=== PATIENT | male | born 1960 | race Caucasian/White ===

== ENCOUNTER → 2016-09-20 | Outpatient (CLI) | payer BC ==
[~2016-09-20] MED LIST: ASPI81TA28 PO; LISI-461 PO; NSP/500 PO; OMEP40CA PO; ROSU20TA PO
[2016-09-20 13:59] LABS: ALT/SGPT 25 U/L (12-78); BLOOD UREA NITROGEN 15 mg/dl (7-18); BUN/CREATININE RATIO 14.9 (10-20); CARBON DIOXIDE 27 mmol/L (21-32); CHLORIDE 106 mmol/L (98-107); GLUCOSE 102 mg/dl (70-99); POTASSIUM 4.2 mmol/L (3.5-5.1); SODIUM 141 mmol/L (136-145)
[2016-09-20 14:04] LABS: CHOLESTEROL 151 mg/dl (0-200); CHOLESTEROL/HDL RATIO 4.1; HDL CHOLESTEROL 37 mg/dl; LDL CHOLESTEROL CALCULATED 81 mg/dl; PROSTATE SPECIFIC ANTIGEN 0.725 ng/ml (0.000-4.000); TRIGLYCERIDES 163 mg/dl (0-150); VERY LOW DENSITY LIPOPROT CALC 33 mg/dl
== END | disposition home or self-care (01) ==
LOC: C.LABBC 10:03
PROVIDERS: ATTEND Family Medicine
DX: E78.5 Hyperlipidemia, unspecified (principal); I10 Essential (primary) hypertension; Z12.5 Encounter for screening for malignant neoplasm of prostate

== ENCOUNTER → 2017-09-26 | Outpatient (CLI) | payer OTHER ==
[~2017-09-26] MED LIST changes: +NIAC500T83 PO; -NSP/500 PO
[2017-09-26 12:26] LABS: ALT/SGPT 26 U/L (12-78); BLOOD UREA NITROGEN 17 mg/dl (7-18); CALCIUM 7.9 mg/dl (8.5-10.1); CARBON DIOXIDE 23 mmol/L (21-32); CHOLESTEROL 141 mg/dl (0-200); GLUCOSE 127 mg/dl (70-99); POTASSIUM 3.9 mmol/L (3.5-5.1); SODIUM 139 mmol/L (136-145)
[2017-09-26 12:32] LABS: LDL CHOLESTEROL CALCULATED 80 mg/dl
== END ==
LOC: C.LABPBG 08:36
PROVIDERS: ATTEND Family Medicine
DX: E78.5 Hyperlipidemia, unspecified (principal); I10 Essential (primary) hypertension

== ENCOUNTER 2017-12-08 06:18 | Day surgery (SDC) | payer OTHER ==
[2017-11-29 08:53] VITALS: Ht 175.3 cm; Wt 118.9 kg
--- NOTE | 2017-11-29 09:17 | PAT Medication Instructions ---
Service Date Nov 29, 2017. Current Home Medication List Aspirin (Aspirin Ec), 162 MG PO HS Lisinopril (Zestril), 20 MG PO HS Omeprazole (Prilosec), 40 MG PO HS Rosuvastatin Calcium (Crestor), 40 MG PO HS Medication Instructions For Your Scheduled Surgery -Follow the surgeon's instructions for: Aspirin (Aspirin Ec), 162 MG PO HS - Hold the following medications the night before surgery: Lisinopril (Zestril), 20 MG PO HS - Take the following medications as scheduled the night before surgery: Omeprazole (Prilosec), 40 MG PO HS Rosuvastatin Calcium (Crestor), 40 MG PO HS If you have any questions please call us at [phone] or [phone] or [phone]
--- NOTE | 2017-11-29 10:10 | DIAGNOSTIC IMAGING REPORT ---
CHEST 2 VIEWS ROUTINE CLINICAL HISTORY: 57 years-old Male presenting with preoperative assessment. TECHNIQUE: PA and lateral views of the chest were obtained. COMPARISON: None. FINDINGS: Cardiomediastinal silhouette normal. Lungs and pleural spaces clear. Osseous structures normal. Upper abdomen normal. IMPRESSION: 1. No acute cardiopulmonary disease. Electronically signed by: Toby Spivey M.D. 11/29/2017 10:09 AM Dictated Date/Time: 11/29/2017 10:09 AM
[2017-11-29 10:31] LABS: BASO % 0.3 %; BASO ABS # 0.02 K/uL (0-0.2); EOS % 3.6 %; EOS ABS # 0.24 K/uL (0-0.5); HEMATOCRIT 43.4 % (42-52); HEMOGLOBIN 14.9 g/dL (14.0-18.0); IG# 0.01 K/uL (0.00-0.02); LYMPH ABS # 1.92 K/uL (1.2-3.4); MEAN CELL VOLUME 87.3 fL (80-100); MEAN CORPUSCULAR HGB CONC 34.3 g/dl (32-36); MEAN PLATELET VOLUME 9.3 fL (7.4-10.4); MONO % 6.6 %; MONO ABS # 0.44 K/uL (0.11-0.59); NEUT % 60.3 %; NEUT ABS # 3.99 K/uL (1.4-6.5); PLATELET COUNT 172 K/uL (130-400); RED CELL DISTRIBUTION WIDTH CV 13.6 % (11.5-14.5); RED CELL DISTRIBUTION WIDTH SD 43.6 fL (36.4-46.3); WHITE BLOOD COUNT 6.62 K/uL (4.8-10.8)
[2017-11-29 10:38] LABS: CREATININE 1.04 mg/dl (0.60-1.40); POTASSIUM 4.1 mmol/L (3.5-5.1)
[2017-11-29 10:40] LABS: PTT PATIENT 26.4 SECONDS (21.0-31.0)
--- NOTE | 2017-12-07 11:19 | HISTORY & PHYSICAL EXAMINATION ---
DATE OF ADMISSION: 12/08/2017 CHIEF COMPLAINT: Right shoulder pain. HISTORY OF PRESENT ILLNESS: The patient is a 57-year-old gentleman seen and evaluated in our office with right shoulder pain and disability. X-rays reveal a large, somewhat retracted rotator cuff tear. He is now scheduled for right shoulder arthroscopy, possible rotator cuff repair. PAST MEDICAL HISTORY: Hypertension, hypercholesterolemia, sleep apnea with CPAP use, obesity, acid reflux. PAST SURGICAL HISTORY: Tonsillectomy, vasectomy. MEDICATIONS: Lisinopril 20 mg daily, omeprazole 40 mg daily, rosuvastatin 40 mg daily, aspirin 81 mg twice daily. ALLERGIES: No known drug allergies. SOCIAL HISTORY AND REVIEW OF SYSTEMS: Noncontributory. PHYSICAL EXAMINATION: GENERAL: Well-nourished, well-developed, obese male who appears stated age. HEENT: Normocephalic, atraumatic, extraocular movements intact, oropharynx pink and moist. NECK: Supple without adenopathy. LUNGS: Clear to auscultation bilaterally. HEART: Regular rate and rhythm. ABDOMEN: Soft, nontender, nondistended, obese. EXTREMITIES: The right shoulder demonstrates painful active range of motion. There is weakness in the rotator cuff with resistive testing. He has pain to palpate about the AC joint. X-RAYS: X-rays and MRI are reviewed. The x-rays did not show significant abnormalities. The MRI shows a large somewhat retracted rotator cuff tear. This involves primarily anterior aspect of the rotator cuff. There is evidence of AC joint arthritis as well. ASSESSMENT: Right shoulder acromioclavicular joint arthritis and large rotator cuff tear. PLAN: Risks versus benefits were discussed, consent was obtained. We will proceed with right shoulder arthroscopy, subacromial decompression, distal clavicle excision, and rotator cuff repair as indicated. The surgery will be performed at the hospital due to his obesity.
[~2017-12-08] VITALS: Ht 175.3 cm; Wt 118.9 kg
[~2017-12-08 06:18] MED LIST changes: +CEFAZOLIN 2000MG IV PUSH 15 ML IV SCH; -NIAC500T83 PO; -OMEP40CA PO; +PRLSR20 PO
[2017-12-08] MEDS ORDERED: ROPIVACAINE 0.5% 5 MG/ML 30 ML VIAL ONE (06:41)
--- NOTE | 2017-12-08 06:56 | History & Physical Bridge Note ---
H&P Re-Evaluation Bridge Note: I have examined the patient, reviewed the History & Physical and in the interval since the performance of the History & Physical I have noted the following changes of clinical significance: No changes noted
[2017-12-08 07:04] VITALS: BP 138/76; PULSE 73; TEMP 36.7; O2SAT 96
[2017-12-08] MEDS ORDERED: NEOSTIGMINE METHYLSULFATE 5 MG/5 ML SYR ONE (08:17)
[2017-12-08] MEDS ORDERED: ONDANSETRON INJ 2 MG/ML 2 ML VIAL ONE (08:17)
[2017-12-08] MEDS ORDERED: ROCURONIUM BROMIDE 10 MG/ML 5 ML VIAL IV ONE (08:17)
[2017-12-08] MEDS ORDERED: DEXAMETHASONE SOD INJ 4 MG/ML VIAL ONE (08:17)
[2017-12-08] MEDS ORDERED: PROPOFOL IV EMULSION 10 MG/ML 20 ML VIAL IV ONE ×2 (08:17→09:45)
[2017-12-08] MEDS ORDERED: GLYCOPYRROLATE INJ 0.2 MG/ML VIAL ONE ×2 (08:17)
[2017-12-08] MEDS ORDERED: LIDOCAINE HCL 2% 2 ML VIAL (20MG/ML) ONE (08:17)
[2017-12-08] MEDS ORDERED: MIDAZOLAM HCL 1 MG/ML 2ML VIAL ONE (08:22)
[2017-12-08] MEDS ORDERED: FENTANYL CITRATE INJ 50 MCG/1 ML 2 ML VIAL ONE (08:50)
[2017-12-08] MEDS ORDERED: FENTANYL CITRATE INJ 50 MCG/1 ML 2 ML VIAL IV PRN (09:15)
[2017-12-08] MEDS ORDERED: ATROPINE SULFATE 0.1 MG/ML 5ML SYR IV PRN (09:15)
[2017-12-08] MEDS ORDERED: EpHEDrine SULFATE INJ 50 MG/ML AMP IV PRN (09:15)
[2017-12-08] MEDS ORDERED: HYDROmorphone INJ 0.5 MG/0.5 ML SYR IV PRN (09:15)
[2017-12-08] MEDS ORDERED: ONDANSETRON INJ 2 MG/ML 2 ML VIAL IV PRN (09:15)
[2017-12-08] MEDS ORDERED: PHENYLEPHRINE 100MCG/ML 5ML SYR ONE (09:27)
[2017-12-08] MEDS ORDERED: EpHEDrine SULFATE 50MG/5ML SYR ONE (09:27)
[2017-12-08] MEDS ORDERED: PHENYLEPHRINE HCL INJ 10 MG/ML VIAL ONE (09:33)
[2017-12-08] MEDS ORDERED: SODIUM CHLORIDE 0.9% 1000ML 1,000 ML IV SCH (10:39)
--- NOTE | 2017-12-08 10:39 | [facility] Post Operative Brief Note ---
Immediate Operative Summary Operative Date Dec 08, 2017. Pre-Operative Diagnosis RIGHT SHOULDER PAIN Post-Operative Diagnosis SAME PREOP Procedure(s) Performed Right Shoulder Arthroscopy, Rotator Cuff Repair, Subacromial Decompression, Distal Clavicale Excision Surgeon DR. LEDESMA Varnish Dipper Surgeon(s) Derrell BOYD PAC Estimated Blood Loss 50ml Findings Consistent with Post-Op Diagnosis Specimens NONE Drains None Anesthesia Type MAC Spinal Regional Complication(s) none Disposition Accompanied Pt To Recover: no Disposition: Recovery Room / PACU
[2017-12-08] MEDS ORDERED: OXYC-57 PO (10:42)
--- NOTE | 2017-12-08 10:43 | Discharge Instructions ---
Discharge Instructions Date of Service Dec 08, 2017. Visit Reason for Visit: Right Shoulder Osteoarthritis, Impingement Syndrom Discharge Discharge Diagnosis / Problem: Right shoulder rotator cuff tear, AC joint arthritis Discharge Goals Goal(s): Decrease discomfort, Improve function Activity Recommendations Activity Limitations: as noted below Anesthesia . Post Anesthesia Instructions: If you have had General Anesthesia or IV Sedation: * Do not drive today. * Resume driving when surgeon permits. * Do not make important decisions or sign legal documents today. * Call surgeon for: 1. Temperature elevations greater than 101 degrees F. 2. Uncontrollable pain. 3. Excessive bleeding. 4. Persistent nausea and vomiting. 5. Medication intolerance (nausea, vomiting or rash). * For nausea and vomiting use only clear liquids such as: tea, soda, bouillon until nausea subsides, then gradually increase diet as tolerated. * If you have any concerns or questions, call your surgeon's office. If physician is unavailable and it is an emergency, call 911 or go to the nearest emergency room. . Instructions / Follow-Up Instructions / Follow-Up U DISCHARGE INSTRUCTIONS: ROTATOR CUFF REPAIR SELF CARE INSTRUCTIONS A. You are permitted to loosen your sling/immobilizer to move your elbow, wrist , and hand to prevent stiffness. You should use your well arm (good arm) to assist the operated extremity when trying to raise the arm away from the body, hygiene purposes. Do NOT actively try to use/engage your shoulder muscles in operative arm at this time. You should NOT do overhead activity, lifting, or attempt to reach behind your back. B. You may/may not be instructed to start Physical Therapy upon discharge depending upon the size and difficulty of the repair. You will be provided a prescription for therapy with specific restrictions, if needed, at time of discharge. C. At 48 hours post-operatively, you may change your dressing. (Leave white steri-strips intact if present). Use band-aids and change daily. You are allowed to shower at this time and get the incision area wet, but DO NOT soak or submerge incision area in water. (No baths, swimming pools, hot tubs) D. Do NOT apply soap or any ointment/lotions directly over incision. E. You may use ice as needed to operative shoulder SPECIAL CARE INSTRUCTIONS: VERY IMPORTANT TO READ AND REVIEW A. There are a few signs you need to watch for after you are home. Call [facility] at [phone] if you experience any of the following: a. Increased severe shoulder pain. Some pain is expected especially when you exercise b. Increased swelling in your shoulder or arm; pain or swelling in either upper extremity. (Note: swelling and stiffness is normal and expected for several weeks post op, depending on type of shoulder surgery you had). c. Any fluid or drainage from the incision; redness of the incision. d. Shortness of breath or chest pain. B. Please call [facility] at [phone] if you have any questions or concerns about your operation or recovery. C. Call your physician if: a. Temperature is greater than 101 degrees (F). b. Pain is not relieved by prescribed pain medications. c. Increase drainage or redness from incision. d. Unanswered questions or concerns. D. Pain Medication: a. You will be prescribed pain medication upon discharge that should last till your first post-operative appointment. b. If you experience nausea and/or skin rash, discontinue this medication and contact our office for an alternative medication. c. Caution- narcotic pain medication can cause constipation. FOLLOW UP VISIT: Please call [facility] at [phone] to schedule a follow up appointment 10-14 days from your surgery date. Diet Recommendations Recommended Home Diet: resume previous diet Procedures Procedures Performed: Right Shoulder Arthroscopy, Rotator Cuff Repair, Subacromial Decompression, Distal Clavicale Excision Pending Studies Studies pending at discharge: no Medical Emergencies . Who to Call and When: Medical Emergencies: If at any time you feel your situation is an emergency, please call 911 immediately. . Non-Emergent Contact Non-Emergency issues call your: Surgeon Call Non-Emergent contact if: temperature is above 101.5, your pain is not controlled, wound has increased drainage, wound has increased redness . . "Provider Documentation" section prepared by Juan Pro PA-C. . [place] Drug Monitoring Program Search Results: patient reviewed within database, no issues identified
[2017-12-08] MEDS ORDERED: OXYCODONE/ACETAMINOPHEN 5-325 TAB PO PRN ×2 (10:45)
--- NOTE | 2017-12-08 11:11 | OPERATIVE REPORT ---
DATE OF OPERATION: 12/08/2017 PREOPERATIVE DIAGNOSIS: Rotator cuff tear, long head of the biceps tear, acromioclavicular arthritis, right shoulder. POSTOPERATIVE DIAGNOSIS: Rotator cuff tear, long head of the biceps tear, acromioclavicular arthritis, right shoulder. PROCEDURE: Arthroscopic subacromial decompression with bursectomy, rotator cuff repair and distal clavicle excision, right shoulder. SURGEON: Dr. Keating. REVERSE UNIT OPERATOR: Juan Pro PA-C. ANESTHESIA: General. COMPLICATIONS: None. DESCRIPTION OF PROCEDURE: Following the administration general anesthesia, the patient's right shoulder was prepped and draped in the usual sterile manner. Mr. Pro was utilized throughout all portions of procedure including positioning, prepping, draping, surgical corsetier, knot tying, wound closure and dressing application. The right shoulder was prepped and draped in usual sterile manner. Posterior incision was used for insertion of the arthroscope. Intraarticular elements were identified and there was found to be complete absence of the long head of the biceps tendon. The rotator cuff tear was identified. Glenohumeral joint was within normal limits. The scope was then placed in the subacromial space where moderate bursitis was encountered. Bursectomy was carried out using 90 degree ablator and a bur was used to perform another subacromial decompression, otherwise known as an acromioplasty. The rotator cuff was grasped with Ruthy and was found to be able to be brought back to a reasonable degree. The bur was used to denude an exposed subchondral bone at the area of the attachment point for the rotator cuff. The supraspinatus then reattached to the femoral head using 2 triple loaded soft tissue anchors and these were taken and the rotator cuff was repaired using #2 Healicoil sutures, 4 sutures attached to each and these were taken in a crisscrossing fashion to 2 footprint anchors. This produced watertight and stable repair of the rotator cuff. A bur was then introduced anteriorly and the distal clavicle excision was carried out removing roughly a centimeter distal clavicle. Final walk around with the bur revealed a small for need to be shaved but otherwise, the patient was taken to recovery in stable and good condition. He tolerated the procedure well. I attest to the content of the Intraoperative Record and any orders documented therein. Any exception s are noted below.
--- NOTE | 2017-12-08 11:33 | Anesthesiology Progress Note ---
Anesthesia Post Op Note Date & Time Dec 08, 2017 at 11:33 Vital Signs Pain Intensity: 0 Vital Signs Past 12 Hours Date Time Temp Pulse Resp B/P (MAP) Pulse Ox O2 Delivery O2 Flow Rate FiO2 12/08/17 11:25 36.4 68 12 133/76 94 Room Air 12/08/17 11:15 71 15 132/74 94 Room Air 12/08/17 11:05 69 18 133/83 100 Oxymask 10 12/08/17 10:55 71 20 130/77 100 Oxymask 10 12/08/17 10:45 36.0 80 20 135/72 99 Oxymask 10 12/08/17 07:04 36.7 73 20 138/76 (96) 96 Room Air Notes Mental Status: alert / awake / arousable, participated in evaluation Pt Amnestic to Procedure: Yes Nausea / Vomiting: adequately controlled Pain: adequately controlled Airway Patency, RR, SpO2: stable & adequate BP & HR: stable & adequate Hydration State: stable & adequate Anesthetic Complications: no major complications apparent
[2017-12-08 11:35] VITALS: BP 140/73; PULSE 67; TEMP 36.5; O2SAT 94
[2017-12-08] MEDS ORDERED: OXYCODONE/ACETAMINOPHEN 5-325 TAB ONE (11:47)
[2017-12-08 12:05] VITALS: BP 141/73; PULSE 78; O2SAT 93
[2017-12-08 12:35] VITALS: BP 116/69; PULSE 82; TEMP 36.6; O2SAT 93
== END 2017-12-08 13:02 | disposition home or self-care (01) ==
LOC: C.ACU 06:18
DX: M75.101 Unspecified rotator cuff tear or rupture of right shoulder, not specified as traumatic (principal); M19.011 Primary osteoarthritis, right shoulder; I10 Essential (primary) hypertension; E78.00 Pure hypercholesterolemia, unspecified; E78.5 Hyperlipidemia, unspecified; G47.33 Obstructive sleep apnea (adult) (pediatric); K21.9 Gastro-esophageal reflux disease without esophagitis; E66.9 Obesity, unspecified; Z90.89 Acquired absence of other organs; Z98.52 Vasectomy status; Z79.82 Long term (current) use of aspirin

== ENCOUNTER 2018-04-22 13:58 | Emergency (ER) | payer OTHER ==
[~2018-04-22] VITALS: Ht 175.3 cm; Wt 115.9 kg
[~2018-04-22 13:58] MED LIST changes: -CEFAZOLIN 2000MG IV PUSH 15 ML IV SCH; +OXYC-57 PO
[2018-04-22 14:00] VITALS: Ht 175.3 cm; Wt 115.9 kg
[2018-04-22] MEDS ORDERED: DiphenhydrAMINE HCL 50 MG/ML VIAL IV STA (14:11)
[2018-04-22] MEDS ORDERED: METHYLPREDNISOLONE 125 MG VIAL IV STA (14:11)
[2018-04-22] MEDS ORDERED: SODIUM CHLORIDE 0.9% 500ML 500 ML IV STA (14:11)
--- NOTE | 2018-04-22 14:11 | EMERGENCY ROOM VISIT NOTE ---
History Report prepared by Jana: Eb Lara Under the Supervision of: Dr. Jose Weeks M.D. First contact with patient: 14:04 Chief Complaint: ALLERGIC REACTION Stated Complaint: ALLERGIC REACTION History of Present Illness The patient is a 57 year old male with a past medical history of HTN, HLD, GERD who presents to the ED with a cc of an allergic reaction to a bee sting that occurred today at 1230. The patient reports that he was stung about four times and started to progressively swell since the stings. He also noted that he has felt itchy on his hands and ankles and his lips feel numb after the sting. The patient also states that his breathing is fine now but he did take Benadryl and received a breathing treatment. He also reports that he has been stung in the past on his lower lip that also resulted in swelling. Positive Coughing, wheezing, HTN, HLD, and GERD. Negative for any other allergies Source of History: patient Onset: An hour and a half ago Position: head (Face) Quality: numbness, other (Itchy) Timing: worsening Associated Symptoms: + cough, No SOB Review of Systems See HPI for pertinent positives and negatives. A total of ten systems were reviewed and were otherwise negative. Past Medical & Surgical Medical Problems: (1) No pertinent past medical history Surgical Problems: (1) No pertinent past surgical history Family History Patient reports no known family medical history. Social History Smoking Status: Never Smoker Alcohol Use: occasionally Drug Use: none Marital Status: Housing Status: lives with family Occupation Status: employed Current/Historical Medications Scheduled Aspirin (Aspirin Ec), 162 MG PO HS Calcium Carbonate-Vitamin D (Calcium), 1 TAB PO DAILY Epinephrine (Epipen), 0.3 MG IM UD Lisinopril (Zestril), 20 MG PO HS Omeprazole (Prilosec), 40 MG PO HS Prednisone (Prednisone), 50 MG PO DAILY Rosuvastatin Calcium (Crestor), 40 MG PO HS Scheduled PRN Oxycodone/Acetaminophen 5MG/325MG (Percocet 5MG/325MG), 1-2 TABLETS PO q4-6 PRN for Pain Allergies Coded Allergies: No Known Allergies (Unverified , 04/22/18) Physical Exam Vital Signs Date Time Temp Pulse Resp B/P (MAP) Pulse Ox O2 Delivery O2 Flow Rate FiO2 04/22/18 16:06 36.7 86 22 144/79 96 04/22/18 15:07 89 22 117/80 96 Room Air 04/22/18 14:02 101 04/22/18 14:00 95 Room Air 04/22/18 14:00 36.7 97 20 164/89 95 Room Air Physical Exam GENERAL: Awake, alert, well-appearing, NAD HENT: atraumatic, mild facial swelling and periorbital edema, posterior pharynx clear, no tonsillar or uvular deviation or swelling. EYES: Normal conjunctiva. Sclera non-icteric. PERRL. No anisocoria. NECK: Supple. No nuchal rigidity. FROM. Non-stridulous RESPIRATORY: no rhonchi, or crackles. Wheezing in right lung CARDIAC: RRR, no MRG ABDOMEN: Soft, NTND, BS+ MSK: No chest wall TTP, no LE edema NEURO: GCS 15, CN 2-12 intact, moves all 4s on command SKIN: No rash or jaundice noted. Mild diffuse urticaria, Nikolsky negative Medical Decision & Procedures Medications Administered Medications (Trade) Dose Ordered Sig/Jim Route Start Time Stop Time Status Last Admin Dose Admin Diphenhydramine HCl (Benadryl Inj) 25 mg NOW STAT IV 04/22/18 14:11 04/22/18 14:12 DC 04/22/18 14:42 25 MG Methylprednisolone Sodium Succinate (Solu-Medrol IV) 125 mg NOW STAT IV 04/22/18 14:11 04/22/18 14:12 DC 04/22/18 14:42 125 MG Famotidine (Pepcid Tab) 20 mg NOW ONCE PO 04/22/18 14:15 04/22/18 14:16 DC 04/22/18 14:42 20 MG Sodium Chloride 500 ml @ 999 mls/hr Q31M STAT IV 04/22/18 14:11 04/22/18 14:41 DC 04/22/18 14:41 999 MLS/HR Medical Decision Nursing notes reviewed. Ancillary studies and prior records reviewed. The patient is a 57 year old male with a past medical history of HTN, HLD, GERD who presents to the ED with a cc of an allergic reaction to a bee sting that occurred today at 1230. . Differential diagnosis: Etiologies such as allergic reaction, anaphylaxis, urticaria, Johnson-Edison syndrome, toxic epidermal necrolysis, erythema multiforme, cellulitis, as well as others were entertained. Patient was seen and evaluated the bedside. Patient had been started approximately 3-4 times by bees just prior to arrival. Patient had received a DuoNeb and had taken some at home allergy medication. Patient did have some mild periorbital swelling as well as some urticaria. The patient had no evidence of any stridor. Patient did have some mild trace wheezing in the right chest. Patient states that he has had wheezing for some time. Patient was offered DuoNeb but I did state that it may make him more jittery and will as well as elevate his heart rate. Patient declined at this time. I believe this is reasonable given that the patient is not tachypneic, hypoxic, nor in respiratory distress. The patient did receive steroids as well as Benadryl and Pepcid. Upon reassessment the patient's swelling did improve. Patient was given a prescription for prednisone and EpiPen. Patient was told to continue to take his reflux medications while he is on steroids and does take a baby aspirin. Patient was given strict follow-up, discharge, and return precautions. All questions were answered. Patient was deemed suitable for outpatient follow-up at this time. Patient agreed with the plan of care and was safely discharged home. Medication Reconcilliation Current Medication List: was personally reviewed by me Blood Pressure Screening Patient's blood pressure: Elevated blood pressure Blood pressure disposition: Referred to PCP Impression Primary Impression: Allergic reaction Additional Impression: Urticaria Scribe Attestation The scribe's documentation has been prepared under my direction and personally reviewed by me in its entirety. I confirm that the note above accurately reflects all work, treatment, procedures, and medical decision making performed by me. Departure Information Dispostion Home / Self-Care Prescriptions Prednisone (PREDNISONE) 50 Mg Tab 50 MG PO DAILY for 4 Days, #44 TAB Prov: Jose Weeks M.D. 04/22/18 Epinephrine (EPIPEN) 0.3 Mg/0.3 Ml Inj 0.3 MG IM UD, #1 PEN Prov: Jose Weeks M.D. 04/22/18 Referrals Nora Cristobal MD (PCP) Forms HOME CARE DOCUMENTATION FORM, IMPORTANT VISIT INFORMATION Patient Instructions ED Bite Sting Insect Gen Allergic React, [facility] Additional Instructions Please return to the emergency department if you have worsening or recurrent symptoms not amenable to at-home treatment. Please call for a follow-up appointment with her primary care physician. Please take your medications as prescribed. If you have other concerns and/or complaints please feel free to also call your primary care physician's office or return the ED for further evaluation, management, and treatment. You may take 600 mg Ibuprofen every 6 hours as needed for pain/fever with food unless told by your physician not to take NSAIDs. You may take tylenol 650 mg every 6 hours as needed for pain/fever unless told by your physician to not take it or have liver problems. You may take motrin and tylenol separately or at the same time. Take your medications as prescribed. Please take your steroids preferably in the morning and with food as they may cause some upset stomach and cause you to be very awake and alert. You may consider Benadryl or Cortaid cream. Please do not use the cortisone based cream for more than 2 days at a time as this may cause some skin thinning. You may also consider calamine lotion. You may consider Benadryl. You may also consider oatmeal baths. Please also consider only bathing once daily and making sure that your water is not very hot as washing too frequently and/or using very hot water may also cause some skin dryness and worsening itchiness. Please consider using creams as opposed to lotions as the lotions typically have alcohols which may also further worsen skin dryness and itchiness. You have been examined and treated today on an emergency basis only. This is not a substitute for, or an effort to provide, complete comprehensive medical care. It is impossible to recognize and treat all injuries or illnesses in a single emergency department visit. It is therefore important that you follow up closely with [facility], your PCP, and/or your specialist(s). Call as soon as possible for an appointment. Thank you for your time and consideration. I look forward to speaking with you again soon. Please don't hesitate to call us if you have any questions. Problem Qualifiers Primary Impression: Allergic reaction Encounter type: initial encounter Qualified Codes: T78.40XA - Allergy, unspecified, initial encounter
[2018-04-22] MEDS ORDERED: FAMOTIDINE 20 MG TAB PO ONE (14:15)
[2018-04-22] MEDS ORDERED: CALC-51 PO (14:23)
[2018-04-22] MEDS ORDERED: PRED50TA PO (15:25)
[2018-04-22] MEDS ORDERED: EPP3/2 IM (15:25)
[2018-04-22 16:06] VITALS: BP 144/79; PULSE 86; TEMP 36.7; O2SAT 96
== END 2018-04-22 16:06 | disposition home or self-care (01) ==
LOC: EDBD 13:58 → C.EDA 14:00
DX: T63.441A Toxic effect of venom of bees, accidental (unintentional), initial encounter (principal); X58.XXXA Exposure to other specified factors, initial encounter; L50.9 Urticaria, unspecified; I10 Essential (primary) hypertension; E78.5 Hyperlipidemia, unspecified; Z79.82 Long term (current) use of aspirin; Z79.899 Other long term (current) drug therapy